=== PATIENT | female | born 1985 | race Hispanic/Latino ===

== ENCOUNTER 2017-06-14 13:00 | Emergency (ER) | payer MEDICAID ==
[~2017-06-14 13:00] MED LIST: PREN-147 PO
== END 2017-06-14 14:38 | disposition home or self-care (01) ==
LOC: EDH 13:00
DX: O9A.211 Injury, poisoning and certain other consequences of external causes complicating pregnancy, first trimester (principal); S40.012A Contusion of left shoulder, initial encounter; Z88.0 Allergy status to penicillin; Z3A.09 9 weeks gestation of pregnancy; V49.49XA Driver injured in collision with other motor vehicles in traffic accident, initial encounter; Y93.89 Activity, other specified; Y92.89 Other specified places as the place of occurrence of the external cause; Y99.8 Other external cause status
CPT/HCPCS: 76801

== ENCOUNTER 2017-07-31 16:47 | Emergency (ER) | payer MEDICAID ==
[2017-07-31 17:15] LABS: APPEARANCE,URINE Clear (CLEAR); BILIRUBIN,URINE Negative (NEGATIVE); COLOR,URINE Yellow (YELLOW); GLUCOSE, URINE (UA) Negative (NEGATIVE); KETONES,URINE Negative (NEGATIVE); LEUKOCYTE ESTERASE ,URINE Small (NEGATIVE); NITRATE,URINE Negative (NEGATIVE); OCCULT BLOOD,URINE Moderate (NEGATIVE); PH,URINE 6.5 (5.0-8.0); PROTEIN,URINE Negative (NEGATIVE); UROBILINOGEN,URINE 0.2 mg/dL (0.2-1.0)
[2017-07-31 17:24] LABS: BACTERIA,URINE Rare /HPF (None Seen); RBC,URINE 0-1 /HPF (0-1); SQUAMOUS EPITHELIAL CELL,UR Rare /HPF (0-2)
== END 2017-07-31 19:32 | disposition home or self-care (01) ==
LOC: EDH 16:47
DX: O20.0 Threatened abortion (principal); O23.42 Unspecified infection of urinary tract in pregnancy, second trimester; Z3A.17 17 weeks gestation of pregnancy; Z88.0 Allergy status to penicillin
CPT/HCPCS: 76805; 81001

== ENCOUNTER 2017-08-03 14:46 | Emergency (ER) | payer MEDICAID | END 2017-08-03 18:12 | disposition home or self-care (01) | LOC: EDH 14:46 | DX: O20.0 Threatened abortion (principal); Z3A.17 17 weeks gestation of pregnancy; Z88.0 Allergy status to penicillin | CPT/HCPCS: 36415; 76805; 84702 ==

== ENCOUNTER 2019-07-31 23:14 | Observation (INO) | payer MEDICAID ==
[~2019-07-31] VITALS: Ht 160 cm; Wt 109.3 kg
[2019-07-31] MEDS ORDERED: LACTATED RINGERS 1000ML IV PRN (23:30)
[2019-07-31 23:31] VITALS: BP 112/65
[2019-07-31] MEDS ORDERED: PREN-196 PO (23:33)
[2019-07-31 23:54] LABS: APPEARANCE,URINE Cloudy (CLEAR); BILIRUBIN,URINE Negative (NEGATIVE); COLOR,URINE Yellow (YELLOW); GLUCOSE, URINE (UA) Negative (NEGATIVE); KETONES,URINE Negative (NEGATIVE); LEUKOCYTE ESTERASE ,URINE Small (NEGATIVE); NITRATE,URINE Negative (NEGATIVE); OCCULT BLOOD,URINE Negative (NEGATIVE); PH,URINE 6.5 (5.0-8.0); PROTEIN,URINE Negative (NEGATIVE)
[2019-07-31 23:59] LABS: BACTERIA,URINE Rare /HPF (None Seen); RBC,URINE None Seen /HPF (0-1); SQUAMOUS EPITHELIAL CELL,UR Many /HPF (0-2)
[2019-08-01] MEDS ORDERED: LACTATED RINGERS 1000ML 1,000 ML IV PRN (00:24)
[2019-08-01] MEDS ORDERED: CLINDAMYCIN 600 MG/D5% WATER 50 ML IV SCH (00:30)
[2019-08-01] MEDS ORDERED: OXYTOCIN-LR 20 UNITS/1000 ML 1,000 ML IV SCH (00:30)
[2019-08-01] MEDS ORDERED: PROMETHAZINE HCL 25 MG/ML 1ML AMPULE IM SCH (01:00)
[2019-08-01] MEDS ORDERED: NALOXONE HCL 0.4 MG/1 ML ML IV PRN (01:00)
[2019-08-01] MEDS ORDERED: ROPIVACAINE 0.2% 100ML VIAL 100 ML EP PRN (01:00)
[2019-08-01] MEDS ORDERED: LACTATED RINGERS 500 ML 500 ML IV PRN (01:00)
[2019-08-01] MEDS ORDERED: EPHEDRINE SULFATE 50 MG/ML AMPULE IVP PRN (01:00)
[2019-08-01] MEDS ORDERED: MEPERIDINE-PF 50 MG/ML SYG IVP ONE (01:00)
[2019-08-01 01:11] LABS: HEMATOCRIT 33.6 % (36-48); MEAN CORPUSCULAR HEMOGLOBIN 26.9 pg (27.0-33.0); MEAN CORPUSCULAR HGB CONC 31.5 g/dL (32.0-36.0); MEAN CORPUSCULAR VOLUME 85.3 fL (79-99); RED BLOOD CELL COUNT(AUTO) 3.94 MIL/uL (4.00-5.50); RED CELL DISTRIBUTION WIDTH 15.4 % (11.0-15.5); WHITE BLOOD COUNT (AUTO) 11.2 K/uL (4.8-10.8)
[2019-08-01] MEDS ORDERED: LACTATED RINGERS 1000ML 1,000 ML IV SCH (06:00)
[2019-08-01] MEDS ORDERED: METOCLOPRAMIDE 10 MG/2 ML VIAL IVP PRN (06:00)
[2019-08-01] MEDS ORDERED: CEFAZOLIN SODIUM 1 GM VIAL IVP PRN (06:00)
[2019-08-01] MEDS ORDERED: CITRIC ACID/SODIUM CITRATE 30 ML UDCUP PO PRN (06:00)
[2019-08-03 13:53] LABS: HEPATITIS Bs ANTIGEN SCREEN P Negative (Negative)
== END 2019-08-01 09:38 | disposition home or self-care (01) ==
LOC: EDH 23:14 → LDH 23:34
DX: O26.893 Other specified pregnancy related conditions, third trimester (principal); Z88.0 Allergy status to penicillin; Z3A.36 36 weeks gestation of pregnancy
CPT/HCPCS: 36415; 81001; 85027; 86592; 86850; 86900; 86901; 87340; 96361; 96365; 99284; G0378 ×2; J3490 ×2; J7120 ×2; 96360

== ENCOUNTER 2019-08-17 13:33 | Inpatient (IN) | payer MEDICAID ==
[~2019-08-17] VITALS: Ht 157.5 cm; Wt 111.1 kg
[~2019-08-17 13:33] MED LIST changes: +PREN-196 PO
[2019-08-17 13:55] LABS: APPEARANCE,URINE SL CLOUDY (CLEAR); BILIRUBIN,URINE MODERATE (NEGATIVE); COLOR,URINE YELLOW (YELLOW); GLUCOSE, URINE (UA) NEGATIVE (NEGATIVE); KETONES,URINE >=80 mg/dL (NEGATIVE); LEUKOCYTE ESTERASE ,URINE MODERATE (NEGATIVE); NITRATE,URINE NEGATIVE (NEGATIVE); OCCULT BLOOD,URINE MODERATE (NEGATIVE); PROTEIN,URINE 30 mg/dL (NEGATIVE)
[2019-08-17 14:07] LABS: BACTERIA,URINE Moderate /HPF (None Seen)
[2019-08-17] MEDS ORDERED: OXYTOCIN-LR 20 UNITS/1000 ML 2,000 ML IV ONE (14:39)
[2019-08-17] MEDS ORDERED: LACTATED RINGERS 1000ML 1,000 ML IV PRN (14:42)
[2019-08-17] MEDS ORDERED: LACTATED RINGERS 500 ML 500 ML IV PRN (14:45)
[2019-08-17] MEDS ORDERED: ROPIVACAINE 0.2% 100ML VIAL 100 ML EP SCH (14:45)
[2019-08-17] MEDS ORDERED: EPHEDRINE SULFATE 50 MG/ML AMPULE IVP PRN (14:45)
[2019-08-17] MEDS ORDERED: NALOXONE HCL 0.4 MG/1 ML ML IV PRN (14:45)
[2019-08-17] MEDS ORDERED: OXYTOCIN-LR 20 UNITS/1000 ML 1,000 ML IV SCH ×2 (14:45→17:15)
[2019-08-17 14:56] LABS: HEMATOCRIT 36.2 % (36-48); MEAN CORPUSCULAR HEMOGLOBIN 26.5 pg (27.0-33.0); MEAN CORPUSCULAR HGB CONC 31.5 g/dL (32.0-36.0); RED BLOOD CELL COUNT(AUTO) 4.31 MIL/uL (4.00-5.50); RED CELL DISTRIBUTION WIDTH 15.6 % (11.0-15.5); WHITE BLOOD COUNT (AUTO) 11.1 K/uL (4.8-10.8)
[2019-08-17] MEDS ORDERED: BENZOCAINE/LANOLIN/ALOE VERA 60 ML AEROSOL TP PRN (17:15)
[2019-08-17] MEDS ORDERED: IBUPROFEN 600 MG TABLET PO PRN (17:15)
[2019-08-17] MEDS ORDERED: WITCH HAZEL 1 PAD TP PRN (17:15)
[2019-08-17] MEDS ORDERED: LANOLIN 30GM OINTMENT TP PRN (17:15)
[2019-08-17] MEDS: ACETAMINOPHEN-CODEINE 300/30MG TAB PO PRN ×2 (18:20→22:25)
[2019-08-17] MEDS ORDERED: DOCUSATE SODIUM 100 MG CAP PO SCH (21:00)
[2019-08-18 07:14] LABS: HEPATITIS Bs ANTIGEN SCREEN P Negative (Negative)
== END 2019-08-17 22:35 | disposition home or self-care (01) | DRG 560 ==
LOC: OBSVTOIN 13:33 → LDH 13:33
PROC: 10E0XZZ Delivery of Products of Conception, External Approach (ICD-10-PCS; principal; 2019-08-17)
PROC: 10907ZC Drainage of Amniotic Fluid, Therapeutic from Products of Conception, Via Natural or Artificial Opening (ICD-10-PCS; 2019-08-17)
PROC: 3E0R3BZ Introduction of Anesthetic Agent into Spinal Canal, Percutaneous Approach (ICD-10-PCS; 2019-08-17)
PROC: 00HU33Z Insertion of Infusion Device into Spinal Canal, Percutaneous Approach (ICD-10-PCS; 2019-08-17)
DX: O98.52 Other viral diseases complicating childbirth (principal); Z37.0 Single live birth; U07.1 COVID-19; Z3A.39 39 weeks gestation of pregnancy; Z87.440 Personal history of urinary (tract) infections
CPT/HCPCS: 36415; 81001; 85027; 86592; 86850; 86900; 86901; 87088; 87340; A4314; G0378; J2590

== ENCOUNTER 2022-04-13 16:27 | Observation (INO) | payer MEDICAID ==
[~2022-04-13] VITALS: Ht 160 cm; Wt 108.4 kg
[2022-04-13 17:26] VITALS: BP 119/66
[2022-04-13 17:33] LABS: APPEARANCE,URINE CLOUDY (CLEAR); BILIRUBIN,URINE NEGATIVE (NEGATIVE); COLOR,URINE LIGHT-YELLOW (YELLOW); GLUCOSE, URINE (UA) NEGATIVE (NEGATIVE); KETONES,URINE NEGATIVE (NEGATIVE); LEUKOCYTE ESTERASE ,URINE 250 Leu/uL (NEGATIVE); NITRATE,URINE NEGATIVE (NEGATIVE); OCCULT BLOOD,URINE NEGATIVE (NEGATIVE); PH,URINE 7.5 (5.0-8.0); PROTEIN,URINE NEGATIVE (NEGATIVE); UROBILINOGEN,URINE 0.2 mg/dL (0.2-1.0)
[2022-04-13 17:37] LABS: BACTERIA,URINE FEW /HPF (None Seen); MUCUS,URINE RARE LPF (None Seen); RBC,URINE 0-1 /HPF (0-1); SQUAMOUS EPITHELIAL CELL,UR MOD /HPF (0-2)
[2022-04-13] MEDS: LACTATED RINGERS 1000ML IV SCH ×3 (17:49→19:51)
[2022-04-13] MEDS: TERBUTALINE SULFATE VIAL 1MG/ML SQ PRN ×3 (19:19→21:05)
== END 2022-04-13 23:10 | disposition home or self-care (01) ==
LOC: LDH 16:27
PROVIDERS: ADMIT Obstetrics & Gynecology; ATTEND Obstetrics & Gynecology
DX: O99.613 Diseases of the digestive system complicating pregnancy, third trimester (principal); K59.00 Constipation, unspecified; O26.893 Other specified pregnancy related conditions, third trimester; R05.9 Cough, unspecified; Z3A.31 31 weeks gestation of pregnancy; W19.XXXA Unspecified fall, initial encounter; Y93.89 Activity, other specified; Y92.89 Other specified places as the place of occurrence of the external cause
CPT/HCPCS: 96361 ×3; 96372; 96360; 87088; 81001; G0378 ×6; G0379; J7120 ×4; J3105

== ENCOUNTER 2022-05-10 20:29 | Observation (INO) | payer MEDICAID ==
[~2022-05-10] VITALS: Ht 160 cm; Wt 109.8 kg
[2022-05-10 20:39] VITALS: BP 130/73
[2022-05-10 21:22] LABS: APPEARANCE,URINE CLEAR (CLEAR); BILIRUBIN,URINE NEGATIVE (NEGATIVE); COLOR,URINE COLORLESS (YELLOW); GLUCOSE, URINE (UA) NEGATIVE (NEGATIVE); KETONES,URINE NEGATIVE (NEGATIVE); LEUKOCYTE ESTERASE ,URINE NEGATIVE Leu/uL (NEGATIVE); NITRATE,URINE NEGATIVE (NEGATIVE); OCCULT BLOOD,URINE NEGATIVE (NEGATIVE); PH,URINE 6.5 (5.0-8.0); PROTEIN,URINE NEGATIVE (NEGATIVE); UROBILINOGEN,URINE 0.2 mg/dL (0.2-1.0)
[2022-05-10 21:25] LABS: BACTERIA,URINE FEW /HPF (None Seen); MUCUS,URINE RARE LPF (None Seen); SQUAMOUS EPITHELIAL CELL,UR FEW /HPF (0-2)
[2022-05-10] MEDS ORDERED: LACTATED RINGERS 1000ML IV SCH (23:30)
== END 2022-05-10 23:15 | disposition home or self-care (01) ==
LOC: EDH 20:44 → LDH 20:45
PROVIDERS: ADMIT Obstetrics & Gynecology; ATTEND Obstetrics & Gynecology
DX: O26.893 Other specified pregnancy related conditions, third trimester (principal); R10.2 Pelvic and perineal pain; Z3A.35 35 weeks gestation of pregnancy; W19.XXXA Unspecified fall, initial encounter; Y92.89 Other specified places as the place of occurrence of the external cause; Y93.89 Activity, other specified; Y99.8 Other external cause status
CPT/HCPCS: 59025; 96360; 81001; G0378 ×2; G0379

== ENCOUNTER 2022-05-18 16:16 | Observation (INO) | payer MEDICAID ==
[~2022-05-18] VITALS: Ht 160 cm; Wt 109.8 kg
[2022-05-18] MEDS: LACTATED RINGERS 1000ML 1,000 ML IV SCH ×2 (16:45→17:35)
[2022-05-18 17:00] LABS: APPEARANCE,URINE CLOUDY (CLEAR); BILIRUBIN,URINE NEGATIVE (NEGATIVE); COLOR,URINE LIGHT-YELLOW (YELLOW); GLUCOSE, URINE (UA) NEGATIVE (NEGATIVE); KETONES,URINE NEGATIVE (NEGATIVE); LEUKOCYTE ESTERASE ,URINE 500 Leu/uL (NEGATIVE); NITRATE,URINE NEGATIVE (NEGATIVE); OCCULT BLOOD,URINE NEGATIVE (NEGATIVE); PH,URINE 6.5 (5.0-8.0); PROTEIN,URINE NEGATIVE (NEGATIVE); UROBILINOGEN,URINE 0.2 mg/dL (0.2-1.0)
[2022-05-18 17:05] LABS: BACTERIA,URINE RARE /HPF (None Seen); SQUAMOUS EPITHELIAL CELL,UR MANY /HPF (0-2)
== END 2022-05-18 18:25 | disposition home or self-care (01) ==
LOC: LDH 16:16
PROVIDERS: ADMIT Obstetrics & Gynecology; ATTEND Obstetrics & Gynecology
DX: O36.8330 Maternal care for abnormalities of the fetal heart rate or rhythm, third trimester, not applicable or unspecified (principal); Z3A.36 36 weeks gestation of pregnancy
CPT/HCPCS: 59025; 96360; 96361; 87088; 81001; 76819; G0378 ×2; G0379; J7120 ×2